=== PATIENT | female | born 1990 | race Caucasian/White ===

== ENCOUNTER 2018-04-03 07:44 | Emergency (ER) | payer SELFPAY ==
[2018-04-03] MEDS ORDERED: CEFTRIAXONE 1 GM/D5W RTU 1 GM/50 ML RTUPB IV ONE (08:35)
[2018-04-03] MEDS ORDERED: NORMAL SALINE 1000 ML 1,000 ML IV ONE (08:35)
[2018-04-03] MEDS ORDERED: ACETAMINOPHEN 325 MG TABLET PO ONE (08:36)
[2018-04-03] MEDS ORDERED: ONDANSETRON 4 MG TAB.RAPDIS PO ONE (08:36)
[2018-04-03] MEDS ORDERED: MORPHINE SULFATE 10 MG/ML INJ IV ONE (08:36)
[2018-04-03 09:28] LABS: ABSOLUTE MONOCYTES (AUTO) 0.8 10^3/uL (0.1-1.4); ABSOLUTE NEUT (AUTO) 10.1 10^3/uL (1.7-8.2); BASOPHILS % (AUTO) 0.1 % (0-2); EOSINOPHILS % (AUTO) 0.2 % (0-6); HEMATOCRIT 40.4 % (36.0-47.0); HEMOGLOBIN 13.9 g/dL (12.0-15.5); LYMPHOCYTES % (AUTO) 8.1 % (13-45); MEAN CORPUSCULAR HEMOGLOBIN 29.7 pg (27.0-33.4); MEAN CORPUSCULAR HGB CONC 34.4 g/dL (32.0-36.0); MEAN CORPUSCULAR VOLUME 86 fl (80-97); MONOCYTES % (AUTO) 6.7 % (3-13); PLATELET COUNT 157 10^3/uL (150-450); RED BLOOD COUNT 4.67 10^6/uL (3.72-5.28); SEGMENTED NEUTROPHILS % (AUTO) 84.9 % (42-78); TOTAL CELLS COUNTED % (AUTO) 100 %; WHITE BLOOD COUNT 11.9 10^3/uL (4.0-10.5)
[2018-04-03 09:46] LABS: ALANINE AMINOTRANSFERASE 19 U/L (9-52); ALKALINE PHOSPHATASE 52 U/L (38-126); ANION GAP 12 (5-19); ASPARTATE AMINO TRANSFERASE 13 U/L (14-36); BILIRUBIN,DIRECT 0.2 mg/dL (0.0-0.4); BILIRUBIN,TOTAL 0.4 mg/dL (0.2-1.3); BLOOD UREA NITROGEN 12 mg/dL (7-20); CALCIUM 9.4 mg/dL (8.4-10.2); CARBON DIOXIDE 24 mmol/L (22-30); CHLORIDE 106 mmol/L (98-107); GLUCOSE 95 mg/dL (75-110); POTASSIUM 4.5 mmol/L (3.6-5.0); SODIUM 142.3 mmol/L (137-145); TOTAL PROTEIN 6.8 g/dL (6.3-8.2)
[2018-04-03] MEDS ORDERED: CEFTRIAXONE SODIUM 1,000 MG in DEXTROSE 5%-WATER 100 ML IV SCH (10:00)
[2018-04-03 10:38] LABS: APPEARANCE,URINE SLIGHTLY-CLOUDY; BILIRUBIN,URINE NEGATIVE (NEGATIVE); GLUCOSE, URINE NEGATIVE (NEGATIVE); KETONES,URINE NEGATIVE (NEGATIVE); LEUKOCYTE ESTERASE,URINE LARGE (NEGATIVE); NITRITE,URINE NEGATIVE (NEGATIVE); PROTEIN,URINE NEGATIVE (NEGATIVE); UROBILINOGEN,URINE NEGATIVE mg/dL (<2.0)
[2018-04-03 10:40] LABS: COLOR,URINE YELLOW
--- NOTE | 2018-04-03 12:25 | ER Document Report ---
ED Oral Problem - General Chief Complaint: Sore Throat Stated Complaint: THROAT PAIN/FEVER Time Seen by Provider: 04/03/18 08:31 Mode of Arrival: Ambulatory Information source: Patient TRAVEL OUTSIDE OF THE [place] IN LAST 30 DAYS: No - HPI Patient complains to provider of: Sore throat Onset: Yesterday Onset: Gradual Quality of pain: Achy, Sharp Severity: Moderate Pain Level: 4 Sore throat: Moderate Associated symptoms: None Worsened by: Nothing Relieved by: Nothing Similar symptoms previously: No Recently seen / treated by doctor/dentist: No - Related Data Allergies/Adverse Reactions: zomeg Allergy (Uncoded 04/03/18 08:08) Past Medical History - Social History Smoking Status: Current Every Day Smoker Chew tobacco use (# tins/day): No Frequency of alcohol use: Rare Drug Abuse: None Family History: Reviewed & Not Pertinent Patient has suicidal ideation: No Patient has homicidal ideation: No Renal/ Medical History: Denies: Hx Peritoneal Dialysis Past Surgical History: Reports: Hx Tonsillectomy Review of Systems - Review of Systems Constitutional: Fever. denies: Chills EENT: denies: Eye pain, Eye discharge Cardiovascular: No symptoms reported Respiratory: denies: Cough, Short of breath Genitourinary: Dysuria, Frequency. denies: Discharge Female Genitourinary: No symptoms reported Musculoskeletal: Joint pain Skin: No symptoms reported Hematologic/Lymphatic: No symptoms reported Neurological/Psychological: No symptoms reported -: Yes All other systems reviewed and negative Physical Exam - Vital signs Vitals: Temp Pulse Resp BP Pulse Ox 99.2 F 89 18 129/80 H 98 04/03/18 07:48 04/03/18 07:48 04/03/18 07:48 04/03/18 07:48 04/03/18 07:48 - General General appearance: Appears well, Alert In distress: None - HEENT Head: Normocephalic, Atraumatic Eyes: Normal Pupils: PERRL - Respiratory Respiratory status: No respiratory distress Chest status: Nontender Breath sounds: Normal Chest palpation: Normal - Cardiovascular Rhythm: Regular Heart sounds: Normal auscultation Murmur: No - Abdominal Inspection: Normal Distension: No distension Bowel sounds: Normal Tenderness: Nontender Organomegaly: No organomegaly - Back Back: Normal, Nontender - Extremities General upper extremity: Normal inspection, Nontender, Normal color, Normal ROM , Normal temperature General lower extremity: Normal inspection, Nontender, Normal color, Normal ROM , Normal temperature, Normal weight bearing. No: Deborah's sign - Neurological Neuro grossly intact: Yes Cognition: Normal Orientation: AAOx4 Ecru Coma Scale Eye Opening: Spontaneous Berry Coma Scale Verbal: Oriented Ecru Coma Scale Motor: Obeys Commands Ecru Coma Scale Total: 15 Speech: Normal Motor strength normal: LUE, RUE, LLE, RLE Sensory: Normal - Psychological Associated symptoms: Normal affect, Normal mood - Skin Skin Temperature: Warm Skin Moisture: Dry Skin Color: Normal Course - Vital Signs Vital signs: Temp Pulse Resp BP Pulse Ox 99.3 F 88 16 115/71 100 04/03/18 12:44 04/03/18 12:44 04/03/18 12:44 04/03/18 12:44 04/03/18 12:44 - Laboratory Result Diagrams: 04/03/18 08:50 04/03/18 08:50 Laboratory results interpreted by me: 04/03/18 04/03/18 04/03/18 08:50 08:50 09:56 WBC 11.9 H Seg Neutrophils % 84.9 H Lymphocytes % 8.1 L Absolute Neutrophils 10.1 H AST 13 L Urine Blood LARGE H Ur Leukocyte Esterase LARGE H - Transfer of Care Notes: 04/03/18 19:34 Patient felt much better after receiving treatment in the emergency room. We will discharge her home to follow-up with her primary doctor tomorrow morning. Discharge - Discharge Clinical Impression: Pharyngitis Qualifiers: Pharyngitis/tonsillitis etiology: other specified organisms Qualified Code(s): J02.8 - Acute pharyngitis due to other specified organisms UTI (urinary tract infection) Qualifiers: Urinary tract infection type: acute cystitis Hematuria presence: without hematuria Qualified Code(s): N30.00 - Acute cystitis without hematuria Condition: Stable Disposition: HOME, SELF-CARE Instructions: Sore Throat ([facility]), Urinary Tract Infection ([facility]) Additional Instructions: Follow-up with your primary doctor tomorrow morning. Return to the emergency room if the condition worsens. Prescriptions: Cephalexin Monohydrate [Keflex 500 mg Capsule] 500 mg PO Q6H 5 Days #40 capsule Ibuprofen 800 mg PO Q8 PRN #30 tablet PRN Reason: Pain Scale Of 4 Forms: Return to Work
[2018-04-03] MEDS ORDERED: KETOROLAC TROMETHAMINE INJ/PF 30 MG/1 ML SDV IV ONE (12:31)
[2018-04-03 12:50] VITALS: BP 115/71
== END 2018-04-03 12:50 | disposition home or self-care (01) ==
LOC: ER 07:44
DX: J02.8 Acute pharyngitis due to other specified organisms (principal); N30.00 Acute cystitis without hematuria; R50.9 Fever, unspecified; R30.0 Dysuria; R35.0 Frequency of micturition; F17.200 Nicotine dependence, unspecified, uncomplicated
CPT/HCPCS: 99282; 96361; 96375; 96365; 36415; 87040; 87070; 87880; 85025; 81025; 87077; 80053; 81001; S0119; J1885; J2270; J0696; J7030